=== PATIENT | male | born 1955 | race African-American/Black ===

== ENCOUNTER 2020-04-18 00:41 | Observation (INO) | payer MEDICARE, MEDICAID ==
[2020-04-18] VITALS (7 sets, daily range): BP systolic 100–146; BP diastolic 55–92
[~2020-04-18] VITALS: Ht 185.4 cm; Wt 60.0 kg
[~2020-04-18 00:41] MED LIST: ASPIRIN325 MG PO; ASPIRIN81 MG PO; ATENOLOL50 MG PO; ATRIPLA PO; FLEXERIL5 MG PO; GABAPENTIN300 MG PO; HYDROCHLOROT12.5 MG PO; LISINOPRIL10 MG PO; METHOCARBAM500 MG PO; MORPHINE SUL60 MG OR; MULTIVITAMIN PO; NORVASC5 MG PO; OXYCODONE30 MG PO; XANAX1 MG PO
--- NOTE | 2020-04-18 00:42 | NUR ---
PATIENT TO ROOM 10 VIA EMS STRETCHER. PATIENT IS HOLLERING OUT, ASKING FOR BLANKETS AND PO FLUIDS. PATIENT ABLE TO ANSWER ALL QUESTIONS. TRIAGE COMPLETED AT BEDSIDE.
[2020-04-18] MEDS ORDERED: ATRIPLA PO (00:55)
[2020-04-18] MEDS ORDERED: RESTORIL15 MG PO (00:55)
[2020-04-18] MEDS ORDERED: COZAAR25 MG PO (00:55)
--- NOTE | 2020-04-18 01:08 | NUR ---
WATER GIVE PER REPEATED REQUEST
[2020-04-18 01:14] LABS: HEMATOCRIT 37.9 % (39.0-50.0); HEMOGLOBIN 12.3 g/dl (14.0-18.0); IMMATURE GRANULOCYTES 0.3 % (0.0-5.0); MEAN CORPUSCULAR HGB 33.2 pG CALC (26.0-32.0); MEAN CORPUSCULAR HGB CONC 32.5 g/dL CAL (32.0-36.0); NEUT# 8.23 thou/uL (1.82-7.42); RED BLOOD COUNT 3.7 mill/uL (4.70-6.10); RED CELL DISTRI WIDTH 12.9 % (11.5-15.5)
[2020-04-18 01:29] LABS: ALKALINE PHOSPHATASE 81 u/l (38-126); CARBON DIOXIDE 20 mmol/l (22-30); ETHYL ALCOHOL 0 mg/dl (0-30); MAGNESIUM 3.1 mg/dL (1.6-2.3); POTASSIUM 4.3 mmol/l (3.5-5.1)
[2020-04-18 01:34] LABS: MEAN CELL VOLUME 102.4 fL CALC (80.0-100.0)
[2020-04-18 01:36] LABS: ALBUMIN 4.5 g/dL (3.2-5.0); ANION GAP 15 (6-22 (CALC)); BUN/CREATININE RATIO 37 (12-20 (CALC)); CHLORIDE 119 mmol/l (95-108); CREATININE 2.7 mg/dL (0.7-1.3); GFR 24 ML/MIN (>=60 (CALC)); GFR FOR AFR.AMER. 29 ML/MIN (>=60 (CALC)); SGOT/AST > 750 u/l (19-48); SODIUM 150 mmol/l (137-146); TOTAL PROTEIN 8.6 g/dL (6.3-8.2)
[2020-04-18 01:38] LABS: BUN 99 mg/dL (8-23)
--- NOTE | 2020-04-18 02:00 | NUR ---
GAVE PT URINAL INFORMED HIM THAT WAS ALL WE NEEDED AND THEN THE DOCTOR WILL DECIDE IF HE NEEDS TO BE ADMITTED OR CAN GO HOME.
--- NOTE | 2020-04-18 02:52 | NUR ---
DR BECKMAN IN TO SPEAK WITH PT AND NIECE.
--- NOTE | 2020-04-18 03:38 | NUR ---
PT INCONTINENT OF LARGE AMOUNT OF URINE. CLEANED AND CHANGED PT. MANJU TOOK ALL PT'S CLOTHING AND PILLS HOME. INFORMED HER PT GOING TO ROOM 270. Admission Note Report Given to: MARC PERALES Transported by: Wheelchair X Stretcher Transported with: X Nurse Transporter X Patent IV O2 Van Driver Helper Location: ICU X MS2
--- NOTE | 2020-04-18 03:59 | NUR ---
PT ARRIVED TO THE MED SURG UNIT AND SELF TRANSFERRED TO THE BED FROM STRETCHER WITH 2X ASSISTANCE. PT WAS VERY WEAK AND UNSTEADY GAIT. SKIN APPEARS TO BE INTACT, PT LOCX5, SPEECH SLIGHTLY SLURRED, PT SEDATED IN APPEARANCE, BUT FOLLOWS INSTRUCTIONS, 02SAT ON RA89% PT PLACED ON 2L02 SATS 96%. PT FALLING ASLEEP WE TALK W/HIM. PT ABLE TO SIGN HIS NAME TO ONE PAPER AND THEN FELL ASLEEP AND WOULD NOT SIGN THE "FALL SHEET." V/S STABLE AT THIS TIME. NO S/O DISTRESS, JUST SEDATED IN APPEARANCE. ASSESSMENT COMPLETED, BED ALARM PLACED ON AND CAMERA PLACED FOR PT SAFETY MONITORING. PT VERY UNSTEADY AND FALLING OVER SITTING UP IN THE BED.
[2020-04-18 04:40] LABS: URINE BILIRUBIN - DIPSTICK NEGATIVE (NEGATIVE); URINE BLOOD DIPSTICK LARGE (NEGATIVE); URINE COLOR YELLOW; URINE GLUCOSE - DIPSTICK NEGATIVE (NEGATIVE); URINE KETONE TRACE mg/dL (NEGATIVE); URINE LEUK ESTERASE NEGATIVE (NEGATIVE); URINE NITRITE - DIPSTICK NEGATIVE (Negative); URINE PROTEIN - DIPSTICK 30 mg/dL (NEG-TRACE); URINE UROBILINOGEN - DIPSTICK 0.2 E.U./dL (0.2)
[2020-04-18 04:48] LABS: URINE WBC 0-2 WBC/hpf (0-5)
--- NOTE | 2020-04-18 05:08 | NUR ---
PT SLEEPING AT THIS TIME.
--- NOTE | 2020-04-18 07:29 | NUR ---
RECIEVED REPORT FROM MARC PERALES. PT SLEEPING IN SEMI FOWLERS POSITION. RSPIRATIONS ARE EVEN AND UNLABORED. IV RUNNING WITH EASE AT 250 ORDERED. NO SIGNS OF ANY PAIN OR DISCOMFORTS AT THIS TIME. ALL SAFETY PRECATUIONS IN PLACE WITH CALL LIGHT IN REACH. WILL CONTINUE TO MONITOR
[2020-04-18] MEDS ORDERED: OXYCODONE30 MG PO (07:45)
[2020-04-18 08:46] LABS: CREATININE 1.9 mg/dL (0.7-1.3); MAGNESIUM 2.8 mg/dL (1.6-2.3); POTASSIUM 4.4 mmol/l (3.5-5.1)
--- NOTE | 2020-04-18 08:50 | NUR ---
JULIAN,ANESTHESIA AT BEDSIDE
--- NOTE | 2020-04-18 09:00 | NUR ---
RT AT BEDSIDE OBTAINING EKG.
--- NOTE | 2020-04-18 11:16 | NUR ---
DR. TOBAR AND JEANETTE ANRP AT BEDSIDE DISCUSSING POC.
--- NOTE | 2020-04-18 12:30 | NUR ---
PT RESTING IN SEMI FOWLERS POSITION WATCHING TV. NIECE AT BEDSIDE. RESPIRATIONS ARE EVEN AND UNLABORED. PT DENIES ANY PAIN OR DISCOMFORTS AT THIS TIME. ASKED NIECE IF SHE KNEW ANYONE WHO COULD BRING PTS HOME MED ATRIPLA. NILAWRENCE STATED" HIS OTHER NIECE HAS A TREVINO, I WILL SEE IF SHE CAN GET IT. " ALL SAFTEY PRECAUTIONS IN PLACE WITH CALL LIGHT IN REACH. WILL CONTINUE TO MONITOR.
--- NOTE | 2020-04-18 12:47 | NUR ---
DR MCGRATH AT BEDSIDE DISCUSSING POC
--- NOTE | 2020-04-18 14:29 | NUR ---
Confirmed med list with patient and pharmacist, Osiel, at [facility] in [place], [place]. Patient regularly fills at [facility] pharmacy. Spoke with patient who also confirmed med list and stated his preferred pharmacy is [place], [place].
--- NOTE | 2020-04-18 14:38 | NUR ---
HOME MEDICATION ATRIPLA BROUGHT IN BY FAMILY AND PROVIDED TO PHARMACY FOR VERIFICATION.
[2020-04-18] MEDS ORDERED: MS CONTIN60 MG PO (15:04)
--- NOTE | 2020-04-18 16:19 | NUR ---
PT SLEEPING IN SEMI FOWLERS POSITION UPON ENTERING ROOM. RESPIRATIONS ARE EVEN AND UNLABRORED AT THIS TIME. IV FLUIDS RUNNING AT 75 ML ORDERED. PT DENIES ANY PAIN OR DISCOMFORTS AT THIS TIME. ALL SAFTEY PRECAUTIONS IN PLACE WITH CALL LIGHT IN REACH. WILL CONTINUE TO MONTIOR
--- NOTE | 2020-04-18 19:55 | NUR ---
PT SETTING OFF BED ALARM TRYING TO GET OUT OF BED, PT ASSISTED TO STAND AT BEDSIDE TO USE URINAL. PT UNSTEADY ON FEET AND UNABLE TO STAND UP STRAIGHT. PT REPOSITIONED IN BED. RESPIRATIONS EVEN AND UNLABORED ON RA. LUNGS SOUND DIMINISHED. PEDAL PULSES WEAK. PT DENIES ANY PAIN OR DISCOMFORT AT THIS TIME. BED ALARM ACTIVE FOR PT SAFETY. WILL CONTINUE TO MONITOR.
--- NOTE | 2020-04-18 23:36 | NUR ---
PT SOUNDED ALARM, PT ASSISTED TO BSC. IVSITE LEAKING BLOOD. PT CLEANED OF INCONTINENT URINE AND GOWN CHANGED. BEDDING CHANGED AT THIS TIME. 200CC OF DARK YELLOW URINE EMPTIED AT THIS TIME AND SOME INCONTINENCE NOTED DURING TRANSFERRING FROM BED TO BSC. IV SITE INTACT, PATENT, BUT DRESSING LOOSE. I ASKED PT IF I COULD CHANGE HIS EMS SITE TO [facility] ACCESSED SITE, HE SHOOK HIS HEAD NO AND GRUNTED. I ASKED PT IF I COULD CLEAN THE EXISTING SITE AND CHANGE THE DRESSING, HE STATED "YES." DRESSING CHANGED TO PERIPHERAL SITE TO , SITE PATENT AND FLUSHING. IVF LEFT RUNNING. BED ALARM ON. PT DENIES ANY OTHER NEEDS. CALL LIGHT AT SIDE.
--- NOTE | 2020-04-19 00:01 | NUR ---
PT RESTING IN BED CONDUM CATHETER IN PLACE. CALL OLIVER WITH IN REACH WILL CONTINUE TO MONITOR.
[2020-04-19 03:15] VITALS: BP 124/70
--- NOTE | 2020-04-19 04:10 | NUR ---
PT PULLED CONDUM CATHETER OFF, UNSUCCESSFULLY ATTEMPED TO USE THE URINAL. PT CLEANED UP AND LINENS CHANGED. BED ALARM ACTIVE FOR PT SAFETY. WILL CONTINUE TO MONITOR.
[2020-04-19 05:28] LABS: BUN 48 mg/dL (8-23); CARBON DIOXIDE 23 mmol/l (22-30); CHLORIDE 116 mmol/l (95-108); CREATININE 1.1 mg/dL (0.7-1.3); GFR > 60 ML/MIN (>=60 (CALC)); GFR FOR AFR.AMER. > 60 ML/MIN (>=60 (CALC)); POTASSIUM 4.4 mmol/l (3.5-5.1); SODIUM 141 mmol/l (137-146)
[2020-04-19 05:42] LABS: ALBUMIN 3.2 g/dL (3.2-5.0)
--- NOTE | 2020-04-19 07:28 | NUR ---
RECIEVED REPORT FROM MARC WOODRUFF. PT SLEEPING IN SEMI FOLWERS POSITION UPON ENTERING ROOM. RESPIRATIONS ARE EVEN AND UNLABORED. IV FLUIDS RUNNING AT 75ML ORDERED. TELE IN PLACE. NO SIGNS OF ANY PAIN OR DISCOMFORTS AT THIIS TIME. ALL SAFTEY PRECAUTIONS REMIAN IN PLACE WITH CALL LIGHT IN REACH. WILL CONTINUE TO MONITOR.
[2020-04-19 08:31] LABS: HEMATOCRIT 36.5 % (39.0-50.0); HEMOGLOBIN 11.6 g/dl (14.0-18.0); MEAN CELL VOLUME 102.5 fL CALC (80.0-100.0); MEAN CORPUSCULAR HGB 32.6 pG CALC (26.0-32.0); MEAN CORPUSCULAR HGB CONC 31.8 g/dL CAL (32.0-36.0); RED BLOOD COUNT 3.56 mill/uL (4.70-6.10); RED CELL DISTRI WIDTH 13.2 % (11.5-15.5)
[2020-04-19 08:52] LABS: ALBUMIN 3.1 g/dL (3.2-5.0); ALKALINE PHOSPHATASE 65 u/l (38-126); ANION GAP 5 (6-22 (CALC)); BILIRUBIN, TOTAL 0.7 mg/dL (0.0-1.4); BUN 37 mg/dL (8-23); BUN/CREATININE RATIO 39 (12-20 (CALC)); CARBON DIOXIDE 25 mmol/l (22-30); CHLORIDE 116 mmol/l (95-108); CREATININE 0.9 mg/dL (0.7-1.3); GFR > 60 ML/MIN (>=60 (CALC)); GFR FOR AFR.AMER. > 60 ML/MIN (>=60 (CALC)); POTASSIUM 3.9 mmol/l (3.5-5.1); SGOT/AST 457 u/l (19-48); SODIUM 141 mmol/l (137-146)
[2020-04-19 08:57] LABS: TOTAL PROTEIN 6.5 g/dL (6.3-8.2)
[2020-04-19 10:05] VITALS: BP 137/65
--- NOTE | 2020-04-19 10:05 | NUR ---
ASSESSMENT AND VITALS COMPLETED AT THIS TIME. PT IS A/O X2 BUT VERY DOWSY. BP 137/65, HR 47, O2 100% ON 2L NC. RESPIRATIONS ARE EVEN AND UNLABORED, LUNG SOUNDS ARE CLEAR. HEART RHYTHM IS NORMAL, TELE IN PLACE.BOWEL SOUNDS ARE ACTIVE IN ALL QUADRANTS WITH NO TENDERNESS. RADIAL AND PEDAL PULSES ARE STRONG WITH NORMAL CAPILLARY REFILL. SKIN IS WARM AND DRY WITH NO BREAK DOWN OR EDEMA. IV FLUIDS RUNNING @ 75 ML ORDERED. PT DENIES ANY PAIN OR DISCOMFORTS AT THIS TIME.ALL SAFTEY PRECAUTIONS IN PLACE WITH CALL LIGHT IN REACH WITH BED ALARM ACTIVATED. WILL CONTINUE TO MONITOR.
--- NOTE | 2020-04-19 10:59 | NUR ---
AND JEANETTE,DOUGLAS AT BEDSIDE DISCUSSING POC WITH PT.
--- NOTE | 2020-04-19 12:00 | NUR ---
PT RESTING IN RECYLINER WITH EYES CLOSED. RESPIRTAIONS ARE EVEN AND UNLABORED. PT STILL APPEARS VERY DROWSY BUT DOES AWAKEN WHEN CALLED.TELE IN PLACE . IV FLUIDS RUNNING AT 75 ML ORDERED, SITE APPEARS HEALTHY AND PATENT. PT DENIES OF ANY PAIN OR DISCOMFORTS AT THIS TIME. ALL SAFTEY PRECAUTIONS IN PLACE WITH CALL LIGHT IN REACH. WILL CONINUE TO MONITOR.
[2020-04-19 12:08] VITALS: BP 133/71
--- NOTE | 2020-04-19 14:16 | NUR ---
PT TRANSPORTED TO [facility] IN STABLE CONDITION VIA WHEELCHAIR ACCOMPANIED BY DANILO CONNELL.
[2020-04-19 14:20] VITALS: BP 141/85
--- NOTE | 2020-04-19 15:23 | NUR ---
PT ARRIVED BACK TO MED SURG ROOM 270 VIA WHEELCHAIR IN STABLE CONDITION. PT WANTED TO SIT BACK UP IN RECYLINER. RESPIRATIONS ARE EVEN AND UNLABORED WITH NO SIGNS OF DISTRESS. PT IS NOT DROWSY IN THE MORNING. PT DENIES ANY PAIN OR DISCOMFORTS AT THIS TIME. ALL SAFETY PRECAUTIONS IN PLACE WITH CALL LIGHT IN REACH. WILL CONTINUE TO MONITOR.
[2020-04-19 19:16] VITALS: BP 141/68
--- NOTE | 2020-04-19 20:00 | NUR ---
PT RESTING IN BED, ALERT TO SELF. RESPIRATIONS EVEN AND UNLABORED ON O2 @ 2L VIA NC. LUNG SOUND DIMINISHED. PEDAL PULSES ARE SRONG PT DENIES ANY PAIN OR DISCOMFORT AT THIS TIME. BED ALARM ACTIVE FOR PT SAFETY. WILL CONTINUE TO MONITOR.
[2020-04-19 23:40] VITALS: BP 133/66
--- NOTE | 2020-04-20 | NUR ---
PT RESTING IN BED, FREE FROM DISTRESS AT THIS TIME. BED ALARM ACTIVE FOR PT SAFETY. WILL CONTINUE TO MONITOR.
[2020-04-20 04:00] VITALS: BP 191/82
--- NOTE | 2020-04-20 04:00 | NUR ---
PT RESTING IN BED, FREE FROM DISTRESS AT THIS TIME. BED ALARM ACTIVE FOR PT SAFETY. WILL CONTINUE TO MONITOR.
[2020-04-20 05:47] VITALS: BP 193/83
[2020-04-20 07:04] LABS: ALBUMIN 3.2 g/dL (3.2-5.0); ALKALINE PHOSPHATASE 62 u/l (38-126); ANION GAP 8 (6-22 (CALC)); BILIRUBIN, TOTAL 0.7 mg/dL (0.0-1.4); BUN 21 mg/dL (8-23); BUN/CREATININE RATIO 31 (12-20 (CALC)); CARBON DIOXIDE 24 mmol/l (22-30); CHLORIDE 110 mmol/l (95-108); CREATININE 0.7 mg/dL (0.7-1.3); GFR > 60 ML/MIN (>=60 (CALC)); GFR FOR AFR.AMER. > 60 ML/MIN (>=60 (CALC)); POTASSIUM 4.6 mmol/l (3.5-5.1); SGOT/AST 366 u/l (19-48); SODIUM 138 mmol/l (137-146); TOTAL PROTEIN 7.1 g/dL (6.3-8.2)
--- NOTE | 2020-04-20 07:30 | NUR ---
RECIEVED REPORT FROM RANJAN TRAN. PT SLEEPING IN SMEI FOWLERS POSITION UPON ENTERING ROOM. RESPIRATIONS ARE EVEN AND UNLABORED. NO SIGNS OF ANY DISTRESS OR DISCOMFORTS. IV FLUIDS RUNNING @75 ORDERED, SITE APPERS HEALTHY AND PATENT. ALL SAFTEY PRECAUTIONS IN PLACE WITH CALL LIGHT IN REACH AND BED ALARM ACTIVATED. WILL CONTINUE TO MONITOR
[2020-04-20 08:12] VITALS: BP 171/80
--- NOTE | 2020-04-20 08:12 | NUR ---
PT RESTING IN SEMI FOWLERS POSITION UPON ENTERING ROOM. INTRODUCED SELF TO PT AND DISCUSSED POC. ASSESSMENT AND VITALS COMPLETED AT THIS TIME. BP 171/8, HR 48. COZAAR ADMINISTERED WITH MORNING MEDS. O2 96% ON 2L NC, RESPIRATIONS ARE EVEN AND UNLABORED. LUNG SOUNDS ARE CLEAR, TELE IN PLACE. RADIAL AND PEDAL PULSES ARE STRONG WITH NORMAL CAPILLARY REFILL. NO EDEMA OR SKIN BREAK DOWN PRESENT. IV FLUIDS RUNNING @75 ML ORDERED, SITE APPEARS HEALTHY AND PATENT. PT COMPLAINING OF 5/10 ABDOMINAL PAIN . NOTIFIED JEANETTE, ORDERED TAHT WE ARE NOT ABLE TO GIVE ANYTHING ELSE OF NOW DUE TO PT ALREADY HAVING OXYCODONE EARLIER THIS MORNING. PT DENIES ANY OTHER PAINS OR DISCOMFORTS AT THIS TIME. ALL SAFETY PRECAUTIONS IN PLACE WITH CALL LIGHT IN REACH AND BED ALARM ACTIVATED. WILL CONTINUE TO MONITOR
[2020-04-20 11:12] VITALS: BP 134/79
--- NOTE | 2020-04-20 11:30 | NUR ---
DR. TOBAR AND JEANETTE AT BEDSIDE DISCUSSING POC.
--- NOTE | 2020-04-20 12:10 | NUR ---
PT SITTING UP IN RECYLINER WITH EYES CLOSED. RESPIRATIONS ARE EVEN AND UNLABORED WITH NO SIGNS OF ANY DISTRESS. PT APPEARS EVERY DOWSY BUT DOES AWAKE WHEN NAME CALLED. PT DENIES OF ANY PAIN OR DISCOMFORTS AT THIS TIME. ALL SAFTEY PRECAUTIONS IN PLACE WITH CALL LIGHT IN REACH. WILL CONTINUE TO MONITOR.
--- NOTE | 2020-04-20 14:17 | NUR ---
IV REMOVED WITH CATHATER STILL INTACT. PT TOLERATED WELL. AWAITING FOR NIECES ARRIVAL TO EXPAIN DISCHARGE INSTRUCTIONS. ALL SAFTEY PRECAUTIONS IN PLACE WITH CALL LIGHT IN REACH. WILL CONTINUE TO MONITOR.
--- NOTE | 2020-04-20 14:38 | NUR ---
PT AND NIECE EDUCATED ON DISCHARGE INSTRUCTIONS AND HOLD OF ATRIPLA. NIECE AND PT VERBALIZED UNDTERSTANDING. ALL SAFTEY PRECAUTIONS IN PLACE WIITH CALL LIGHT IN REACH. AWAITING TRANSPORTATION AT THIS TIME. WILL CONTINUE TO MONITOR
--- NOTE | 2020-04-20 14:40 | NUR ---
Discharge instructions given. Patient verbalizes understanding of same. Discharged in stable condition via Wheelchair to Home with family. All belongings sent with pt. PT LEFT FLOOR IN STABLE CONDITION VIA WHEELCHAIR ACCOMPAINED BY RAMEZ YANES;DANILO IBANEZ AND NIECE. ALL BELONGINGS AND HOME MED ATRIPLA LEFT WITH PT IN NIECES HANDS
== END 2020-04-20 14:40 ==
LOC: ED 00:41 → ED-I 02:40 → ED 03:02 → ED-I 03:03 → MS2 03:03
PROVIDERS: Family Medicine; Internal Medicine; Internal Medicine Nephrology; Nurse Practitioner Family; ADMIT Internal Medicine; ATTEND Internal Medicine
DX: T40.2X1A Poisoning by other opioids, accidental (unintentional), initial encounter (principal); N17.9 Acute kidney failure, unspecified; E86.0 Dehydration; E87.0 Hyperosmolality and hypernatremia; I95.9 Hypotension, unspecified; R74.0 Nonspecific elevation of levels of transaminase and lactic acid dehydrogenase [LDH]; E46 Unspecified protein-calorie malnutrition; I10 Essential (primary) hypertension; G62.9 Polyneuropathy, unspecified; I73.9 Peripheral vascular disease, unspecified; G89.4 Chronic pain syndrome; E87.2 Acidosis; M54.12 Radiculopathy, cervical region; D64.9 Anemia, unspecified; F14.10 Cocaine abuse, uncomplicated; B18.2 Chronic viral hepatitis C; F17.200 Nicotine dependence, unspecified, uncomplicated; Y92.009 Unspecified place in unspecified non-institutional (private) residence as the place of occurrence of the external cause; Z68.1 Body mass index [BMI] 19.9 or less, adult; Z21 Asymptomatic human immunodeficiency virus [HIV] infection status; Z79.891 Long term (current) use of opiate analgesic; Z20.828 Contact with and (suspected) exposure to other viral communicable diseases
CPT/HCPCS: G0378

== ENCOUNTER 2021-12-22 11:44 | Inpatient (IN) | payer MEDICARE, MEDICAID ==
[~2021-12-22] VITALS: Ht 185.4 cm; Wt 42.0 kg
[~2021-12-22 11:44] MED LIST changes: +COZAAR25 MG PO; +MS CONTIN60 MG PO; +RESTORIL15 MG PO
--- NOTE | 2021-12-22 12:06 | NUR ---
PT ESCORTED TO ROOM 11 VIA EMS STRETCHER
--- NOTE | 2021-12-22 12:18 | NUR ---
PT ARRIVAL VIA EMS, FOUND DOWN, POOR HISTORIAN, HX OF ETOH, 1MG NARCAN GIVEN BY EMS
[2021-12-22 12:32] LABS: IMMATURE GRANULOCYTES 0.3 % (0.0-5.0); MEAN CELL VOLUME 102.4 fL CALC (80.0-100.0); MEAN CORPUSCULAR HGB 32.9 pG CALC (26.0-32.0); MEAN CORPUSCULAR HGB CONC 32.1 g/dL CAL (32.0-36.0); NEUT# 7.27 thou/uL (1.82-7.42); RED BLOOD COUNT 4.1 mill/uL (4.70-6.10); RED CELL DISTRI WIDTH 12.8 % (11.5-15.5)
[2021-12-22 12:36] LABS: HEMOGLOBIN 13.5 g/dl (14.0-18.0)
[2021-12-22 13:09] LABS: ALBUMIN 4.5 g/dL (3.2-5.0); BILIRUBIN, TOTAL 0.8 mg/dL (0.0-1.4); POTASSIUM 5.6 mmol/l (3.5-5.1)
[2021-12-22 13:10] LABS: CREATININE 7.5 mg/dL (0.7-1.3)
[2021-12-22 13:14] LABS: URINE BLOOD DIPSTICK LARGE (NEGATIVE); URINE COLOR YELLOW; URINE GLUCOSE - DIPSTICK NEGATIVE (NEGATIVE); URINE KETONE NEGATIVE (NEGATIVE); URINE LEUK ESTERASE NEGATIVE (NEGATIVE); URINE PH 5.5 (4.5-8.0); URINE PROTEIN - DIPSTICK 30 mg/dL (NEG-TRACE); URINE SPECIFIC GRAVITY >=1.030; URINE UROBILINOGEN - DIPSTICK 0.2 E.U./dL (0.2)
[2021-12-22 13:33] LABS: URINE BILIRUBIN - DIPSTICK SMALL (NEGATIVE); URINE NITRITE - DIPSTICK POSITIVE (Negative)
[2021-12-22 13:34] LABS: URINE BACTERIA FEW hpf; URINE EPITHELIAL CELLS FEW EPI/hpf (0-FEW); URINE MUCUS MODERATE hpf (NONE-FEW)
--- NOTE | 2021-12-22 13:45 | NUR ---
RT CONSULTED TO ASSESS PATIENT DUE TO FEELING OF SOB ON 15L VENTURI MASK AND NO WAVEFORM IN SPO2.
--- NOTE | 2021-12-22 13:59 | NUR ---
UNABLE TO PERFORM NIH DUE TO PATIENT STATE.
--- NOTE | 2021-12-22 14:11 | NUR ---
Reassessment of patient completed. No distress noted.
[2021-12-22] MEDS ORDERED: XALATAN0.005 % OU (14:44)
[2021-12-22] MEDS ORDERED: KURIC2 % EX (14:45)
--- NOTE | 2021-12-22 16:14 | NUR ---
Rt CURRENTLY BEDSIDE WITH PATIENT
--- NOTE | 2021-12-22 17:53 | NUR ---
REPORT CALLED TO MARC NEWMAN ICU
--- NOTE | 2021-12-22 18:30 | NUR ---
male pt received to ICU bed 2 via stretcher accompanied by MARC Rubio; pt transferred to bed; monitoring attachments connected; call light within reach
[2021-12-22 18:45] VITALS: BP 127/63
[2021-12-22 18:55] LABS: CREATININE 5.6 mg/dL (0.7-1.3); POTASSIUM 5.3 mmol/l (3.5-5.1)
[2021-12-22 19:00] VITALS: BP 137/63
--- NOTE | 2021-12-22 19:00 | NUR ---
RESTING IN BED WITH EYES CLOSED. RESP SHALLOW, NON-LABORED. VSS. SR ON MONITOR.
[2021-12-22 19:15] VITALS: BP 122/58
[2021-12-22 19:30] VITALS: BP 133/58
[2021-12-22 19:45] VITALS: BP 140/63
--- NOTE | 2021-12-22 20:00 | NUR ---
PATIENT OPENS EYES. ABLE TO STATE NAME AND BIRTHDATE. SPEECH SOMEWHAT GARBLED. FOLLOWS COMMANDS. GENERALIZED WEAKNESS. VSS. IV IN LAC WITH NS INFUSING AT 150 ML/HR. SHIFT ASSESSMENT COMPLETED. EXPLAINED PLAN OF CARE. CALL OLIVER IN REACH.
--- NOTE | 2021-12-22 20:15 | NUR ---
DR TOBAR PHNED IN FOR UPDATE ON PATIENT.
[2021-12-22 22:00] VITALS: BP 155/69
--- NOTE | 2021-12-22 22:04 | NUR ---
RT HERE TO DRAW REPEAT ABGS. PATIENT RESTLESS AT TIMES ALTHOUGH COOPERATIVE WITH CARE. VSS. IV INFUSING WITHOUT INCIDENT.
[2021-12-22 23:33] LABS: CREATININE 4.5 mg/dL (0.7-1.3)
--- NOTE | 2021-12-22 23:45 | NUR ---
DR TOBAR MADE AWARE OF RECENT CHEM 7 RESULTS. NEW ORDERS RECEIVED.
[2021-12-23] VITALS (26 sets, daily range): BP systolic 123–247; BP diastolic 59–134
--- NOTE | 2021-12-23 00:52 | NUR ---
PATIENT MEDICATED WITH ROXICODONE FOR C/O GENERALIZED PAIN AND RESOTRIL FOR SLEEP. PATIENT HAD REFUSED MEDS EARLIER TONIGHT.
--- NOTE | 2021-12-23 02:00 | NUR ---
RESTING WITH EYES CLOSED. RESP NON-LABORED. VSS.
--- NOTE | 2021-12-23 03:30 | NUR ---
COMPLETE BED BATH GIVEN, LINENS CHANGED. PATIENT COOPERATIVE WITH CARE.
--- NOTE | 2021-12-23 04:10 | NUR ---
SAMPLER RADIOACTIVE WASTE HERE FOR AM BLOOD DRAW. VSS. SR ON MONITOR. /2 NS INFUSING AT 150 ML/HR, IV SITE BENIGN.
[2021-12-23 05:54] LABS: HEMATOCRIT 37.3 % (39.0-50.0); MEAN CELL VOLUME 102.5 fL CALC (80.0-100.0); MEAN CORPUSCULAR HGB CONC 32.2 g/dL CAL (32.0-36.0); RED BLOOD COUNT 3.64 mill/uL (4.70-6.10); RED CELL DISTRI WIDTH 12.9 % (11.5-15.5)
--- NOTE | 2021-12-23 06:18 | NUR ---
RESTING WITH EYES CLOSED. VSS. RESP NON-LABORED. ST ON MONITOR.
[2021-12-23 06:26] LABS: ALBUMIN 3.6 g/dL (3.2-5.0); BILIRUBIN, TOTAL 0.6 mg/dL (0.0-1.4); POTASSIUM 5.1 mmol/l (3.5-5.1); TOTAL PROTEIN 7.5 g/dL (6.3-8.2)
[2021-12-23 06:32] LABS: CREATININE 3.4 mg/dL (0.7-1.3)
--- NOTE | 2021-12-23 07:15 | NUR ---
pt restless in bed with eyes open; does respond/turn head when name is called; assessment completed at this time; pt alert to name only; pt non verbal with this resume writer at this time; no s/s/grimaces of pain noted; no n/v noted; resp even and unlabored; lungs clear/ diminished bases; skin color wnl; o2 per nc at 5L; hr reg; wk pedal pulses; no edema noted; st on monitor; abd soft with bs hypoactive; no bm noted per resume writer; donahue to gravity draining well; #22 patent to rac with ivf infusing without complication; no redness or edema noted at site; plan of care explained; pt appears very ill; call light within reach; bed alarm activated for pt safety; pt unable to tolerate po safely at this time due to mental status; will continue to monitor closely
--- NOTE | 2021-12-23 08:00 | NUR ---
moaning occasionally; open eyes wide hen name is called; when attempting to speak, speech noted garbled; pt too drowsy for breakfast or meds; repositioned; moans loudly with repositioning; call light within reach; will continue to monitor
--- NOTE | 2021-12-23 08:47 | NUR ---
Dr Munoz present at bedside to assess pt and discuss plan of care; MD informed of elevated BP at this time; pt responds to name being called; moans loudly/grunts when repositioned; will continue to monitor
--- NOTE | 2021-12-23 09:15 | NUR ---
pt has removed monitoring attachments; pushes this bond writer away when attempting to reapply; medicated as per orders; iv intact and patent; o2 per nc; will continue to monitor
--- NOTE | 2021-12-23 10:00 | NUR ---
pt moaning very loudly; appears in pain; st 120s on monitor; Dr Munoz present on unit and updated; pt awake enough to receive oral pain meds; repositined to high fowlers; med provided with applesauce and tolerated well; will continue to monitor
--- NOTE | 2021-12-23 10:05 | NUR ---
sister Margo Parisi ([phone]) called this blurb writer; passcode verified; updated provided;
--- NOTE | 2021-12-23 10:13 | NUR ---
visitor present at bedside
--- NOTE | 2021-12-23 10:49 | NUR ---
pt has removed monitoring attachment; reapplied; freq moaning/growling noted; repositioned for comfort; will continue to monitor
--- NOTE | 2021-12-23 11:17 | NUR ---
Dr Falcon informed of consultation
--- NOTE | 2021-12-23 11:32 | NUR ---
pt freq removing personnel monitor attachment; reapplied and pt immed removes; pulse ox reapplied; st on monitor; bp elevated; repositioned; will continue to monitor
--- NOTE | 2021-12-23 12:22 | NUR ---
pt moaning and grunting very loudly; MD notified of elevated BP and HR; st on monitor; iv intact and patent; reinforced d/t pt freq pulling at lines/ monitoring equipment; orders received and on chart; will continue to monitor closely
--- NOTE | 2021-12-23 12:55 | NUR ---
BP 140s/80s; cardene gtt titrated to 2.5mg/hr
--- NOTE | 2021-12-23 14:01 | NUR ---
pt resting in bed with eyes closed; no apparent distress noted; iv intact and patent; cardene gtt at 2.5mg/hr; st on monitor; ra; o2 sat 100%; call light within reach; will continue to monitor
--- NOTE | 2021-12-23 15:43 | NUR ---
Dr Munoz called this securities underwriter; update provided including bp/hr; informed dilaudid 2mg more effective; orders received and on the chart
--- NOTE | 2021-12-23 15:55 | NUR ---
awake in bed; moaning occasionally; repositioned for comfort; pt favors left side; st on monitor; ra; iv intact and patent; cardene gtt cont at 2.5mg/hr; call light within reach; sister at bedside; will continue to monitor
--- NOTE | 2021-12-23 18:02 | NUR ---
pt awake in bed; moaning very loudly; grunting; pt cont to be nonverbal; resp even and unlabored; iv intact and patent; cardene gtt cont; st on monitor; repositioned to right side; call light within reach;
--- NOTE | 2021-12-23 19:00 | NUR ---
REPORT RECIEVED FROM OUGOING SHIFT. PATIENT RESTING QUIELY IN BED RIGHT SIDE POSITION WITH EYES CLOSED AROUSABLE SLOW TO RESPOND TO QUESTIONS ORIENTED TO SELF AND PLACE WEAKLY FOLLOW VERBAL COMMANDS. DENIES PAIN AT THIS TIME.
--- NOTE | 2021-12-23 20:18 | NUR ---
BP MONITORED 106/[address] TOWNSEND UPDATED ON CONDITION NEW ORDER RECIEVED.
--- NOTE | 2021-12-23 21:38 | NUR ---
PATIENT QUITELY RESTING IN BE DWITH EYES CLOSED. AROUSABLE OBTUNDED RESPONSE RETURNS TO SLEEPING STATE MORPINE AND RESTORIL NOT GIVEN DUE PATIENT BEING VERY DROWSY AND SLUGGISH TO RESPOND WILL CONTIUE TO MONITOR
--- NOTE | 2021-12-23 21:53 | NUR ---
CALLED UPDATE ON CONDITION RESTORIL AND MORPHINE ON HOLD
--- NOTE | 2021-12-23 22:57 | NUR ---
occassional non-productive cough noted lethargic follow simple commands. nonverbal moans at times
--- NOTE | 2021-12-23 23:13 | NUR ---
patient very restless moving around in bed moaning loudly eyes are open verbal communication limited oral cavity very dry breathe through mouth.oral membranes moistened with oral swab. remoistioned in bed for comfort to alleviate pain unsuccessful medicated with dilaudid 2 mg slow iv push to relieve pain.
--- NOTE | 2021-12-23 23:29 | NUR ---
resting quietlymin bed with eyes closed hr 88 bpm bp 150/79 posture relaxed pain relief achieved
[2021-12-24] VITALS (17 sets, daily range): BP systolic 100–182; BP diastolic 62–112
--- NOTE | 2021-12-24 00:20 | NUR ---
RESTING QUIETLY IN BED WITH EYES CLOSED NO ACUTE DISTRESS NOTED. RESPIRATIONS EVEN AND UNLABORED.
--- NOTE | 2021-12-24 00:32 | NUR ---
RETURNED BACK TO BED. NO ACUTE DISTRESS NOTED. O2 SAT 100% ON 2LPM NC
--- NOTE | 2021-12-24 01:04 | NUR ---
RESTING QUIETLY WITH EYES CLOSED NO ACUTE DISTRESS NOTED
--- NOTE | 2021-12-24 02:15 | NUR ---
PATIENT AWAKE ALERT SPEECH GARBLED ABLE TO MAKE EYE CONTACT AND FOCUS ON VOICE COMMUNICATION ABLE TO ASSIST WITH REPOSITIONING IN BED. SMALL AMOUNT OF PO FLUIDS AND APPLESAUCE TOLERATED WELL . GRIMACES AND MOANS WHEN REPOSITIONED. MEDICATED FOR COMFORT. BP 174/94 APRESOLINE 10MG GIEN SLOW IV PUSH. CARPET REPAIRER SHOWS SINUS TACHYCARDIA WITH PATIENT RESTLESS ACTIVITY IN BED.
--- NOTE | 2021-12-24 05:00 | NUR ---
PATIENT RESTLESS AWAKE RESISTING REPOSITIONING MOANS LOUDLY POSITION ADJUSTED OFF SIDERAIL. SPEECH GARBLED MEDICATED FOR PAIN
[2021-12-24 05:27] LABS: HEMATOCRIT 36.4 % (39.0-50.0); HEMOGLOBIN 12.1 g/dl (14.0-18.0); MEAN CELL VOLUME 99.7 fL CALC (80.0-100.0); MEAN CORPUSCULAR HGB 33.2 pG CALC (26.0-32.0); MEAN CORPUSCULAR HGB CONC 33.2 g/dL CAL (32.0-36.0); RED BLOOD COUNT 3.65 mill/uL (4.70-6.10); RED CELL DISTRI WIDTH 13.1 % (11.5-15.5)
--- NOTE | 2021-12-24 05:33 | NUR ---
RESTING QUIETLY IN BED EASILY AROUSABLE NO C/O PAIN OR DISCOMFORT VOICED
[2021-12-24 05:39] LABS: ALBUMIN 3.5 g/dL (3.2-5.0); ALKALINE PHOSPHATASE 95 u/l (38-126); CARBON DIOXIDE 18 mmol/l (22-30); CHLORIDE 123 mmol/l (95-108); SGOT/AST 410 u/l (19-48); SODIUM 150 mmol/l (137-146); TOTAL PROTEIN 7.7 g/dL (6.3-8.2)
[2021-12-24 05:42] LABS: ANION GAP 13 (6-22 (CALC)); BILIRUBIN, TOTAL 1.2 mg/dL (0.0-1.4); BUN 54 mg/dL (8-23); BUN/CREATININE RATIO 39 (12-20 (CALC)); CREATININE 1.4 mg/dL (0.7-1.3); GFR 51 ML/MIN (>=60 (CALC)); GFR FOR AFR.AMER. > 60 ML/MIN (>=60 (CALC))
[2021-12-24 06:07] LABS: CPK 7233 u/l (52-200)
--- NOTE | 2021-12-24 07:20 | NUR ---
pt noted asleep sitting straight up in bed; no apparent distress noted; arousable to speech and quickly drifts back to sleep; assessment completed at this time; no s/sx of pain noted; no n/v noted; resp even and unlabored; lungs clear; skin color wnl; ra; hr irreg; wk pedal pulses; no edema noted; sr/pac on monitor; abd soft with bs present; no bm noted per creative writer; donahue to gravity; #22 to rac patent with ivf infusing without complication; no redness or edema noted at site; attempt to reposition and pt pushes at this creative writer; bed alarm set for pt safety; call light within reach; will continue to monitor
--- NOTE | 2021-12-24 08:15 | NUR ---
pt resting with eyes closed while sitting straight up with back against side rail; no apparent distress noted; resp shallow; iv intact and patent; st on monitor; call light within reach; will continue to monitor
--- NOTE | 2021-12-24 09:16 | NUR ---
Dr Munoz present at bedside to assess pt and discuss plan of care
--- NOTE | 2021-12-24 09:40 | NUR ---
SPOKE WITH KRISHAN, PT IS NOT ON CARDENE DRIP OF NOW, BUT WILL LET US KNOW BEFORE WE LEAVE IF THEY NEED US TO MAKE ONE.
--- NOTE | 2021-12-24 09:52 | NUR ---
call received from [place]; passcode verified; update provided
--- NOTE | 2021-12-24 10:20 | NUR ---
pt resting in bed with eyes closed while sitting straight up in bed; back supported againt bed rail; st on monitor; iv intact and patent; no redness or edema noted at site; donahue to gravity; call light within reach; will continue to monitor
--- NOTE | 2021-12-24 11:00 | NUR ---
pt awake in bed; very restless and moaning/grunting loudly; pt able to look at group underwriter when name is called; pt remain non verbal with staff; complete bed bath and linen change provided; catheter care and replacement of catheter strap placed; repositioned to right side; oral mucosa very dry and cracked; oral care with toothette; will continue to monitor
--- NOTE | 2021-12-24 12:09 | NUR ---
pt resting in bed on right side; no apparent distress noted; visitor departed; iv intact and patent; sr on monitor; donahue to gravity; call light within reach; will continue to monitor
--- NOTE | 2021-12-24 14:12 | NUR ---
resting in bed with eyes closed; iv intact and patent; st on the monitor; donahue to gravity; will continue to monitor
--- NOTE | 2021-12-24 16:25 | NUR ---
sister Margo present at bedside; pt very restless/agitated; moaning loudly; repositioned for comfort; medicated with ativan as per orders; typewriter assembler request for visitor to reduce stimulation due to increased agitation; st 120s on monitor; donahue to gravity; will continue to monitor closely
--- NOTE | 2021-12-24 18:00 | NUR ---
resting in bed with eyes closed; no apparent distress noted; resp even and unlabored; iv intact and patent; no redness or edema noted at site; sr on monitor; bed alarm set for pt safety; call light within reach;
--- NOTE | 2021-12-24 19:20 | NUR ---
RESTING IN BED ON ROUNDS. OPENES EYS TO NAME. FOLLOWS SOME DIRECTIONS. CALM AND COOPERATVIE. VSS. RA O2 SAT 97% BREATH SOUNDS CLEAR, DIMINISHED IN BASES. FLOREZ DRAINS ALISIA URINE. IV IN RAC, SITE BNEIGN, D5 INFUSING AT 150 ML/HR. PROCESS CONTROL BOARD OPERATOR SHOWS ST, HR 120'S. EXPLAINED PLAN OF CARE. CALL OLIVER IN REACH.
--- NOTE | 2021-12-24 20:15 | NUR ---
BP 182/112, RECHECK 170/102. APRESOLINE 10 MG IVP GIVEN FOR ELEVATED BP. DILAUDID 2 MG IVP GIVEN FOR C/O PAIN.
--- NOTE | 2021-12-24 21:00 | NUR ---
BP RESPONDED WELL TO APRESOLINE, 143/79 AT THIS TIME.
--- NOTE | 2021-12-24 22:00 | NUR ---
RESTING WITH EYES CLOSED. RESP SHALLOW, NON-LABORED. O2 SAT 97% MONITOR ST.
[2021-12-25] VITALS (20 sets, daily range): BP systolic 123–196; BP diastolic 76–108
--- NOTE | 2021-12-25 00:15 | NUR ---
VSS. RESTING WITH EYES CLOSED. ST ON MONITOR, HR 110'S-120'S.
--- NOTE | 2021-12-25 00:45 | NUR ---
MEDICATED WITH DILAUDID ORDERED FOR PAIN. ASSISTED PATIENT TO TURN AND REPOSITION.
--- NOTE | 2021-12-25 04:15 | NUR ---
ASSISTED PATIENT TO TURN AND REPOSITION. ATIVAN IV GIVEN FOR RESTLESSNESS AND TYLENOL RECTAL SUPP GIVEN FOR TEMP 100.3.
[2021-12-25 05:13] LABS: HEMATOCRIT 37.3 % (39.0-50.0); MEAN CELL VOLUME 101.9 fL CALC (80.0-100.0); MEAN CORPUSCULAR HGB 32.8 pG CALC (26.0-32.0); MEAN CORPUSCULAR HGB CONC 32.2 g/dL CAL (32.0-36.0); RED BLOOD COUNT 3.66 mill/uL (4.70-6.10); RED CELL DISTRI WIDTH 13.3 % (11.5-15.5)
[2021-12-25 05:33] LABS: BUN 29 mg/dL (8-23); CARBON DIOXIDE 20 mmol/l (22-30); CHLORIDE 117 mmol/l (95-108); GFR > 60 ML/MIN (>=60 (CALC)); GFR FOR AFR.AMER. > 60 ML/MIN (>=60 (CALC)); POTASSIUM 3.6 mmol/l (3.5-5.1); SODIUM 143 mmol/l (137-146)
[2021-12-25 05:49] LABS: CPK 8087 u/l (52-200)
--- NOTE | 2021-12-25 05:56 | NUR ---
TEMP DOWN TO 98.5. BP 130/85
--- NOTE | 2021-12-25 07:56 | NUR ---
REPORT RECEIVED FROM MARC MARSH. PT VERY RESTLESS AND AGITATED. MOANING AND MOVING ARMS. PT IS AWAKE, BUT NON VERBAL. DOES MOAN. BP IS ELEVATED AT 167/87. PT MOANS TO REPOSITIONING OR TOUCH WITH ASSESSMENT. GIVEN PRN DILAUDID. PT UNABLE TO FOLLOW COMMANDS. DOES NOT ATTEMPT TO SUCK ON MOUTH SPUNGE WHEN MOUTH SWABBED WITH COLD WATER. BED ALARM APPLIED FOR ADDITIONAL SAFETY. WILL HOLD MEAL TRAY UNTIL FURTHER SEEN BY MD. CALL LIGHT WITHIN REACH. WILL MONITOR CLOSELY.
--- NOTE | 2021-12-25 09:55 | NUR ---
S: PELON JIN is a 66 M who presents with sepsis He has a history of HTN, HIV, neuropathy. All medications in patient's chart were reviewed. O: VS: BP 123/76 mmHg, P 106 beats/min, RR 18 breaths/min ,T 98.0 F W 42 kg, HT 185.42 cm, Scr=1 mg/dL, CrCl= 42.6 ml/min A: Final urine culture shows no growth P: Patient is on Zosyn 3.375 grams @2000, 0800, 1400, 2000 and fluconazole 200mg Q24H. Vancomycin ordered for pharmacy to dose. Start Vancomycin 750 mg IV Q24H. Vancomycin trough is drawn before the 4th dose on 12/28 @1030. Vancomycin goal trough is between 15-20 mcg/ml. Pharmacy will follow and or advise on antibiotics use as needed.
--- NOTE | 2021-12-25 12:03 | NUR ---
PT BACK FROM MRI. AGITATED AND MOANING BP IS ELEVATED. WILL GIVE PRN PAIN MEDICATION, EVALUATE BP AND GIVE PRN BP MEDICATION IF STILL NEEDED. GIVEN ATIVAN PRIOR TO MRI R/T RESTLESSNESS. TOLERATED PROCEDURE. SAFELY PLACED BACK IN BED, BED ALARM TURN ON FOR ADDITINAL SAFETY.
[2021-12-25 13:02] LABS: TSH, 3RD GENERATION 0.16 uIU/mL (0.47 - 4.68)
[2021-12-25 14:19] LABS: URINE BILIRUBIN - DIPSTICK NEGATIVE (NEGATIVE); URINE BLOOD DIPSTICK MODERATE (NEGATIVE); URINE COLOR YELLOW; URINE GLUCOSE - DIPSTICK NEGATIVE (NEGATIVE); URINE KETONE NEGATIVE (NEGATIVE); URINE LEUK ESTERASE NEGATIVE (NEGATIVE); URINE NITRITE - DIPSTICK NEGATIVE (Negative); URINE PROTEIN - DIPSTICK 30 mg/dL (NEG-TRACE); URINE SPECIFIC GRAVITY 1.015; URINE UROBILINOGEN - DIPSTICK 0.2 E.U./dL (0.2)
--- NOTE | 2021-12-25 15:07 | NUR ---
PT GIVEN APRESOLINE FOR BP IS 173/94. ZOSYN HUNG AT THIS TIME WELL. FINISHED WITH DIFLUCAN, AND VANCOMYCIN. CASE MANAGEMENT IN [place] TO SEE PT, STATES FAMILIAR WITH PT, PT MENTAL STATUS UNCHANGED. WHEN SPOKE TO, LOAD MOANS MADE. PT DOES NOT APPEAR TO RECOGNIZE PATIENT. SAFETY REVIEWED, BED ALARM ON.
--- NOTE | 2021-12-25 15:24 | NUR ---
FAMILY IN TO SEE PT AT THIS TIME, LIST OF VISITORS GIVEN AT THIS TIME, PLACED ON CHART.
--- NOTE | 2021-12-25 17:28 | NUR ---
PT IS MOANING AND RESTLESS. BP IS 175/99. MEDICATED WITH PAIN MEDICATION AT THIS TIME. FLOREZ EMPTIED. 600CC OF ALISIA URINE. BED ALARM ON FOR SAFETY. WILL CONTINUE TO MONITOR
--- NOTE | 2021-12-25 19:00 | NUR ---
PATIENT SISTER KRISHAN IN TO VISIT. PATIENT OPENS EYES SPONTANEOUSLY. NO-VERBAL, OCC MOANING. DOES NOT FOLLOW DIRECTIONS.
--- NOTE | 2021-12-25 19:15 | NUR ---
BP 179/89. MEDICATED WITH APRESOLINE 10 MG IVP ORDERED FOR ELEVATED BP. SHIFT ASSESSMENT COMPLETED. BREATH SOUNDS DIMINISHED. O2 SAT 95% RESP NON-LABORED. FLOREZ DRAINS CLEAR ALISIA URINE. IV IN RAC, SITE BENIGN, D5W INFUSING AT 75 ML/HR. VISE HAND SHOWS ST WITH PAC'S. WILL MONITOR BP CLOSELY.
--- NOTE | 2021-12-25 20:30 | NUR ---
BP 190/108. LABETELOL 10 MG IVP GIVEN ONE TIME ORDER FOR ELEVATED BP. WILL CONITNUE TO MONITOR.
--- NOTE | 2021-12-25 21:00 | NUR ---
BP RESPONDED WELL TO LABETELOL, 147,83 AT THIS TIME.
--- NOTE | 2021-12-25 21:45 | NUR ---
DILAUDID 1 MG IVP GIVEN ORDERED FOR PAIN.
--- NOTE | 2021-12-25 22:30 | NUR ---
RESTING WITH EYES CLOSED. RESP NO-LABORED. MONITOR ST WITH PAC'S.
[2021-12-26] VITALS (14 sets, daily range): BP systolic 111–182; BP diastolic 66–116
--- NOTE | 2021-12-26 | NUR ---
PATIENT OCC MOANS OUT. TURNED AND REPOSITIONED. VSS. MONITOR ST WITH PAC'S.
--- NOTE | 2021-12-26 02:30 | NUR ---
BPTRENDING BACK UP, 165/116. HYDRALAZINE GIVEN ORDERED FOR BP. PATINE THAS BEEN MOANING QUITE A BIT PAST 20-30 MINUTES. MEDICATED WITH DILAUDID ORDERED FOR PAIN. TURNED AND REPOSITIONED.
--- NOTE | 2021-12-26 04:00 | NUR ---
VSS. RESP NON-LABORED. VSS. ST WITH PAC'S ON MONITOR. IV INFUSING WITHOUT INCIDENT.
--- NOTE | 2021-12-26 04:45 | NUR ---
MEDICATED WITH ATIVAN ORDERED FOR RESTLESSNESS.
[2021-12-26 05:07] LABS: HEMATOCRIT 35.1 % (39.0-50.0); HEMOGLOBIN 11.8 g/dl (14.0-18.0); MEAN CELL VOLUME 99.2 fL CALC (80.0-100.0); MEAN CORPUSCULAR HGB 33.3 pG CALC (26.0-32.0); MEAN CORPUSCULAR HGB CONC 33.6 g/dL CAL (32.0-36.0); NEUT# 12.16 thou/uL (1.82-7.42); RED BLOOD COUNT 3.54 mill/uL (4.70-6.10); RED CELL DISTRI WIDTH 12.9 % (11.5-15.5)
[2021-12-26 05:26] LABS: ALBUMIN 2.8 g/dL (3.2-5.0); ALKALINE PHOSPHATASE 73 u/l (38-126); ANION GAP 9 (6-22 (CALC)); BILIRUBIN, TOTAL 1.2 mg/dL (0.0-1.4); BUN 20 mg/dL (8-23); BUN/CREATININE RATIO 21 (12-20 (CALC)); CARBON DIOXIDE 19 mmol/l (22-30); CHLORIDE 116 mmol/l (95-108); GFR > 60 ML/MIN (>=60 (CALC)); GFR FOR AFR.AMER. > 60 ML/MIN (>=60 (CALC)); POTASSIUM 3.5 mmol/l (3.5-5.1); SGOT/AST 260 u/l (19-48); SODIUM 140 mmol/l (137-146); TOTAL PROTEIN 6.6 g/dL (6.3-8.2)
[2021-12-26 05:42] LABS: CPK 2725 u/l (52-200)
--- NOTE | 2021-12-26 06:15 | NUR ---
VSS. IV SITE MAINTAINED IN RAC, D5W CONTIUES TO INFUSE AT 75 ML/HR.
--- NOTE | 2021-12-26 08:00 | NUR ---
PATIENT LAYING IN BED WITH EYES CLOSED, PATIENT ALERT ONLY TO NAME. PATIENT OCCASSIONALLY MOANS OUT. REFRIGERATOR CRATER DONE AT THIS TIME, LUNG LARA ARE CLEAR IN UPPER LARA AND DIMINISHED IN LOWER LARA. PATINET BOWEL SOUNDS ARE HYPOACTIVE IN ALL QUADS AT THIS TIME. PATIENT HAS A 16F FLOREZ CATH THAT IS PATENT AND DRAINING ALISIA COLOR URINE AT THIS TIME. CATH CARE PREFORMED AND NEW STAY LOCK APPLIED. PATIENT TURNED TO RIGHT SIDE AT THIS TIME. MANAGER SHIFT SHOWING S/R WITH PVC'S AT THIS TIME. SIDERAIL ARE UP X 3 CALL LIGHT IS WIHTIN REACH WILL CONTINUE TO MONITOR.
--- NOTE | 2021-12-26 09:08 | NUR ---
Attempted treatment this am, nursing requested treatment held due to just getting pt settled down. Will return later.
--- NOTE | 2021-12-26 11:15 | NUR ---
CONSENT OBTAINED FOR LUMBAR PUNCTURE PER JAZZ BUCIO WITNESSED BY AXEL TRAN, AND J CARLOS BAKER RN
--- NOTE | 2021-12-26 11:30 | NUR ---
PATIENT GIVEN 0.5MG OF DILUDID IV X 1 DOSE AND 1MG OF ATIVAN IV FOR LUMBAR PROCEEDURE. PATIENT THEN TAKEN DOWN TO XRAY FOR PROCEEDURE AT THIS TIME VIA STRETCHER.
--- NOTE | 2021-12-26 11:51 | NUR ---
Pt gone to test.
--- NOTE | 2021-12-26 12:36 | NUR ---
PATIENT RESTING IN BED AT THIS TIME. EYES CLOSED MOANING AT TIMES. LUMBAR PUNCTURE SITE DRESSING DRY AND INTACT. PATIENT VS SIGNS TAKE SEE INTERVENTIONS AT THIS TIME. SIDERAILS ARE UP CALL LIGHT WITHIN REACH WILL CONTINUE TO MONITOR.
--- NOTE | 2021-12-26 14:00 | NUR ---
BP AT THIS TIME IS 182/86 10MG OF APRESOLINE IV GIVEN AT THIS TIME. WILL CONTINUE TO MONITOR.
--- NOTE | 2021-12-26 14:24 | NUR ---
BP RE-CHECK AT THIS TIME SHOWING 154/78 HR IS 90 WILL CONTINUE TO MONITOR.
--- NOTE | 2021-12-26 15:43 | NUR ---
PATIENT GIVEN 1MG OF DILAUDID IV AT THIS TIME FOR PAIN SIDERAILS ARE UP CALL LIGHT WITHIN REACH WILL CONTINUE TO MONITOR
--- NOTE | 2021-12-26 15:53 | NUR ---
PT RECOMMENDED SCREENING, PT STATUS NOT APPROPRIATE AT THIS TIME FOR OT EVAL.
--- NOTE | 2021-12-26 16:00 | NUR ---
PATIENT RESTING IN BED AT THIS TIME WITH EYES CLOSED RESPIRATIONS EVEN AND SHALLOW AT THIS TIME. FLOREZ CATH REMAINS PATENT AND DRAINING ALISIA COLOR URINE AT THIS TIME. SIDERAILS ARE UP X3 FOR SAFETY DIRECTOR OF PUPIL PERSONNEL PROGRAM READING ST AT HR 105 AND BP AT THIS TIME IS 161/93. LUMBAR SITE REMAINS DRY AT THIS TIME PATIENT IS IN SUPINE POSITION WIHT KNEES BENT. WILL CONTINUE TO MONITOR AT THIS TIME.
--- NOTE | 2021-12-26 19:39 | NUR ---
REPORT GIVEN BY J CARLOS. PATIENT RRESTING IN BED WITH EYES CLOSED. RESP EVEN AND UNLABORED. MOANING AND CALLING OUT. FALL AND SAFTEY PRECAUTIUONS IN PLACE. FLOREZ DRAINING TO GRAVITY. IV INFUSING FLUIDS PER MD ORDERS. FULL CODE. MEDICATIED PER MD ORDERS FOR PAIN. LUNG SOUNDS CLEAR/ DIM, NO O2.
--- NOTE | 2021-12-26 22:00 | NUR ---
PATIENT RESTING WITH EYES CLOSED. RESP EVEN AND UNLABORED. NO S/S OF DISTRESS NOTED. FALL AND SAFTEY PRECAUTIONS IN PLACE.
[2021-12-27] VITALS (60 sets, daily range): BP systolic 119–227; BP diastolic 73–199
--- NOTE | 2021-12-27 00:13 | NUR ---
HYDRALAZINE GIVEN FOR SBB 178
--- NOTE | 2021-12-27 01:51 | NUR ---
patient resting with eyes closed. resp even and unlabored. no s/s of distress noted. fall and saftey precautions in place.
--- NOTE | 2021-12-27 04:18 | NUR ---
PATIENT MEDICATED WITH ATIVAN AND PAIN MEDICATION. PATIENT IS MAONING AND ROCKING SIDE TO SIDE IN BED.
--- NOTE | 2021-12-27 04:22 | NUR ---
HYDRALAZINE GIVEN FOR SBP 182
[2021-12-27 06:01] LABS: HEMATOCRIT 34.6 % (39.0-50.0); HEMOGLOBIN 11.3 g/dl (14.0-18.0); IMMATURE GRANULOCYTES 0.4 % (0.0-5.0); MEAN CELL VOLUME 99.1 fL CALC (80.0-100.0); MEAN CORPUSCULAR HGB 32.4 pG CALC (26.0-32.0); MEAN CORPUSCULAR HGB CONC 32.7 g/dL CAL (32.0-36.0); NEUT# 8.43 thou/uL (1.82-7.42); RED BLOOD COUNT 3.49 mill/uL (4.70-6.10); RED CELL DISTRI WIDTH 12.9 % (11.5-15.5)
[2021-12-27 06:30] LABS: ALBUMIN 2.7 g/dL (3.2-5.0); ALKALINE PHOSPHATASE 74 u/l (38-126); ANION GAP 10 (6-22 (CALC)); BILIRUBIN, TOTAL 1.2 mg/dL (0.0-1.4); BUN 17 mg/dL (8-23); BUN/CREATININE RATIO 19 (12-20 (CALC)); C-REACTIVE PROTEIN 6.9 mg/dL (0-0.9); CARBON DIOXIDE 19 mmol/l (22-30); CHLORIDE 114 mmol/l (95-108); CPK 1242 u/l (52-200); CREATININE 0.9 mg/dL (0.7-1.3); GFR > 60 ML/MIN (>=60 (CALC)); GFR FOR AFR.AMER. > 60 ML/MIN (>=60 (CALC)); POTASSIUM 3.1 mmol/l (3.5-5.1); SGOT/AST 177 u/l (19-48); SODIUM 140 mmol/l (137-146); TOTAL PROTEIN 6.3 g/dL (6.3-8.2)
--- NOTE | 2021-12-27 07:05 | NUR ---
REPORT FROM JUMANA TRAN. ASSUMED PT CARE.
--- NOTE | 2021-12-27 09:15 | NUR ---
PHYSICIAN AT BEDSIDE.
--- NOTE | 2021-12-27 10:40 | NUR ---
COMPLETE BED BATH WITH FLOREZ CARE AND LINEN CHANGE PROVIDED AT THIS TIME. PT TOLERATED WELL.
--- NOTE | 2021-12-27 10:51 | NUR ---
MULTIPLE ATTEMPTS TO PLACE NG TUBE, WITHOUT SUCCESS. PT DOES NOT FOLLOW COMMANDS. NOTIFIED PHYSICIAN AT THIS TIME. NO NEW ORDERS. WILL CONTINUE TO MONITOR.
--- NOTE | 2021-12-27 12:08 | NUR ---
ROM PROVIDED, PT RESISTANT. ATTEMPTED TO REPOSITION WITH PILLOWS. PT HOLLARING OUT. NO APPARENT RESPIRATORY DISTRESS NOTED. CALL LIGHT WITHIN REACH. WILL CONTINUE TO MONITOR.
--- NOTE | 2021-12-27 13:13 | NUR ---
S- pt moaning, gunting, not response to questions. 0- Contacted nursing prior to treatment BP elevated and med just given, BP 141/73 at end of treatment. Pt laying in bed in position towards L side. L eye open at times but not on command, pt did not squeeze hand on command. Pt required slow gradual PROM to B knees to get into extension, prolong positioning done to maintain, pt would pull but knees up to chest initially. PROM to BLE with heelcord and hamstring stretching done. Pt not following commands for bed mobility. He was left with LE in extension, heels off loaded and pillow between knees. Time spent with pt 25 min. A- Pt unable to participated. [facility] ECF. P- Continue to follow for ROM and positioning. Mobility per pt ability.
--- NOTE | 2021-12-27 14:18 | NUR ---
PT REPOSITIONED IN BED WITH PILLOWS. MEDICATED AT THIS TIME FOR GENERALIZED PAIN. PT CONTINUES TO MOAN OUT LOUDLY. PT SISTER AT BEDSIDE. CALL LIGHT WITHIN REACH. WILL CONTINUE TO MONITOR.
--- NOTE | 2021-12-27 15:54 | NUR ---
S- Pt moaning, does not respond to questions. 0- Contacted nursing prior to treatment. He was in position with LE rotated towards L. Pt did squeeze hand on R x 1 on command lightly. PROM x 4 extremities with pt resisting elbow flexion on L and R shoulder with flexion to approx 95 degrees and then increase resistance. LE ranged into full extension with slow gradual pressure and maintain for prolong stretch. Passive Calf stretch also done. Pt not following commands for ex. Time spent with pt 20 min A- No changes noted from am. [facility] 6 ECF P- continue per POC and progress mobility as pt is able to participate.
--- NOTE | 2021-12-27 16:26 | NUR ---
PT MOANING LOUDLY AND RESTLESS, PULLING AT ENGRAVER SIGNATURE WIRES. REPOSITIONED FOR COMFORT. MEDICATED WITH PRN ATIVAN AT THIS TIME. GAUTAM REMAINS PATENT DRAINING TO GRAIVITY. CALL LIGHT WITHIN REACH. WILL CONTINUE TO MONITOR.
--- NOTE | 2021-12-27 17:29 | NUR ---
AXEL RN AT BEDSIDE TO ADMINISTER IV APRESOLINE FOR BP 206/112.
--- NOTE | 2021-12-27 19:47 | NUR ---
PATIENT VERY RESTLESS MOANING IN BED GRIMACING WITH TACTILE TOUCH MEDICATED FOR RELIEF OF DISCOMFORT.
--- NOTE | 2021-12-27 21:31 | NUR ---
APPEAR AGITATED WITH INCREASED RESTLESS MOVEMENTS IN BED BP ELEVATED. DO NOT FOLLOW VERBAL COMMANDS RESISTS CARE. MEDICATED TO REDUCE AGITATION
--- NOTE | 2021-12-27 22:44 | NUR ---
BP REMAINS ELEVATED APRESOLINE 10 MG GIVEN SLOW IV PUSH
[2021-12-28] VITALS (31 sets, daily range): BP systolic 139–190; BP diastolic 78–111
--- NOTE | 2021-12-28 00:06 | NUR ---
DR HONG NOTIFIED OF ELEVATED BP NEW ORDER RECIEVED. MEDICATED WITH LABETALOL 10 MG SLOW IV PUSH WITH GOOD RESULTS.
--- NOTE | 2021-12-28 01:06 | NUR ---
PATIENT APPEAR DISTRESS RANDOM RESTLESS MOVEMENTS IN BED MOANS LOUDLY WITH TACTILE STIMULATION MEDICATED FOR RELIEF OF DISCOMFORT.
--- NOTE | 2021-12-28 02:00 | NUR ---
resting quietly in BED with eyes closed posture relaxed respirations even and unlabored VSS.
--- NOTE | 2021-12-28 03:00 | NUR ---
RESTING QUIETLY IN BED BP 163/85 HR 73 SPO2 96%. POSTURE RELAXED RESPIRATIONS EVEN AND UNLABORED.
--- NOTE | 2021-12-28 05:03 | NUR ---
oral care provided with bath and skin care moans loadly do not follow commands ativan 1 mg give for relief of agitation.
[2021-12-28 05:41] LABS: HEMOGLOBIN 11.7 g/dl (14.0-18.0); IMMATURE GRANULOCYTES 0.8 % (0.0-5.0); MEAN CORPUSCULAR HGB 32.5 pG CALC (26.0-32.0); MEAN CORPUSCULAR HGB CONC 32.5 g/dL CAL (32.0-36.0); NEUT# 4.9 thou/uL (1.82-7.42); RED BLOOD COUNT 3.6 mill/uL (4.70-6.10)
[2021-12-28 05:58] LABS: ALBUMIN 2.7 g/dL (3.2-5.0); ALKALINE PHOSPHATASE 64 u/l (38-126); ANION GAP 9 (6-22 (CALC)); BUN 15 mg/dL (8-23); BUN/CREATININE RATIO 20 (12-20 (CALC)); C-REACTIVE PROTEIN 6.1 mg/dL (0-0.9); CARBON DIOXIDE 20 mmol/l (22-30); CHLORIDE 116 mmol/l (95-108); CREATININE 0.7 mg/dL (0.7-1.3); GFR > 60 ML/MIN (>=60 (CALC)); GFR FOR AFR.AMER. > 60 ML/MIN (>=60 (CALC)); SGOT/AST 140 u/l (19-48); SODIUM 141 mmol/l (137-146); TOTAL PROTEIN 6.4 g/dL (6.3-8.2)
[2021-12-28 06:28] LABS: POTASSIUM 3.9 mmol/l (3.5-5.1)
--- NOTE | 2021-12-28 07:26 | NUR ---
PT RESTING QUIETLY ON STRETCHER, IV FLUIDS INFUSING, PT REPORT RECEIVED, PT REMAINS THE SAME
--- NOTE | 2021-12-28 09:52 | NUR ---
DR. HONG SPEAKING WITH [facility] DOCTOR ABOUT POSSIBLE TRANSFER
--- NOTE | 2021-12-28 11:37 | NUR ---
PHARMACY CALLED AND IS GOING TO ADJUST VANCOMYACIN AND WILL BRING IT TO US.
--- NOTE | 2021-12-28 11:38 | NUR ---
PT STILL MOANING OUT LOUD, DOES NOT FOLLOW ANY COMMANDS, WAITING FOR BED ASSIGNMENT FOR TRANSFER PER DOCTOR ORDER.
--- NOTE | 2021-12-28 13:12 | NUR ---
S- pt moaning, does not respond to questions 0- Pt seen at 9;15 this am. Nursing contacted prior to treatment. He was in bed lower body rotated towards L with legs in position. Pt seen for PROM x 4 extremities, he did assist some with UE movement but not on command. Gentle passive stretch into full knee extension requiring prolong stretch done. Pt flexes knees up to chest quickly when feet are touched for calf stretching requiring long slow stretching back into extension. Pt left in bed with leg extended heel off loaded, pillow between knees. A- [facility] 6 ECF. P- continue to encourage active movement, prevent contractures per POC.
--- NOTE | 2021-12-28 14:36 | NUR ---
S- pt able to give name this pm. and 1 or 2 words understandable. 0- Contacted nursing prior to treatment, he just was medicated with Ativan. Pt in supine legs in extension with heels off loaded. PROM/AAROM to BUEs, pt moves arms but not on command. LEs left in extension. Pt unable to perform mobility activities at this time. A- pt more alert but not following commands, [facility] 6 ECF P- Will follow per POC and progress mobility as pt status permits.
--- NOTE | 2021-12-28 16:02 | NUR ---
PT REPOSITIONED AND ALL CARE BY STAFF. IV SITE HEALTHY. VSS. PT MOANS FREQUENTLY BUT DOES NOT APPEAR TO BE IN PAIN. UNABLE TO CONVEY NEEDS. SKIN WARM AND DRY.
--- NOTE | 2021-12-28 17:24 | NUR ---
CALLED [facility] TO SET UP A TRANSFER TO ED [facility]. WAS TOLD BY GORGE THAT IT WOULD BE A COUPLE HOURS OUT BECAUSE THEY ARE ON A CALL RIGHT NOW AND WITH A LOT OF TRAFFIC. STATED IT WOULD BE LIKELY FOR THE TRANSFER TO OCCUR AROUND 8 PM TONIGHT. PT GOING TO ED [facility] ROOM NUMBER [address].
--- NOTE | 2021-12-28 17:38 | NUR ---
PT HAS A BED WILL BE GOING TO [address], [facility] NOTIFIED, WILL BE HERE AROUND 8 FOR PICKUP. FAMILY NOTIFIED
--- NOTE | 2021-12-28 17:45 | NUR ---
TRIED TO GIVE REPORT TO [facility] ON PT, BUT SINCE PT WILL NOT BE COMING TO THEM UNTIL [phone] WOULD PREFER TO GIVE ON PRODUCTION PACKAGER.
--- NOTE | 2021-12-28 18:17 | NUR ---
PT REMAINS RESTLESS AND MOANING, PULLING OFF MONITER LEADS AND PULSE OX.
--- NOTE | 2021-12-28 19:00 | NUR ---
REPORT RECEIVED Yamilex LEA RN, CARE OF PT ASSUMED AT THIS TIME.
--- NOTE | 2021-12-28 20:15 | NUR ---
ORAL CARE COMPLETED.
--- NOTE | 2021-12-28 23:00 | NUR ---
REPORT CALLED TO CHAYO TRAN AT [facility].
--- NOTE | 2021-12-28 23:14 | NUR ---
PT TRANSPORTED WITH [facility] TRANSPORT PERSONNEL. SECURED TO STRETCHER. [employer] CANDY MAKER ON.
== END 2021-12-28 23:30 | disposition short-term general hospital (02) | DRG 682 ==
LOC: ED 11:44 → ED-I 14:00 → ED 14:34 → ICU 16:51
PROVIDERS: Emergency Medicine; Hospitalist; Internal Medicine Nephrology; ADMIT Internal Medicine; ATTEND Internal Medicine
PROC: 0T9B70Z Drainage of Bladder with Drainage Device, Via Natural or Artificial Opening (ICD-10-PCS; principal; 2021-12-22)
PROC: 009U3ZX Drainage of Spinal Canal, Percutaneous Approach, Diagnostic (ICD-10-PCS; 2021-12-26)
PROC: B01BZZZ Fluoroscopy of Spinal Cord (ICD-10-PCS; 2021-12-26)
DX: N17.0 Acute kidney failure with tubular necrosis (principal); G92.8 Other toxic encephalopathy; B20 Human immunodeficiency virus [HIV] disease; R64 Cachexia; Z68.1 Body mass index [BMI] 19.9 or less, adult; E46 Unspecified protein-calorie malnutrition; M62.82 Rhabdomyolysis; E87.0 Hyperosmolality and hypernatremia; E87.2 Acidosis; E86.0 Dehydration; R09.02 Hypoxemia; E87.5 Hyperkalemia; E86.9 Volume depletion, unspecified; I10 Essential (primary) hypertension; G62.9 Polyneuropathy, unspecified; E83.39 Other disorders of phosphorus metabolism; E87.6 Hypokalemia; F15.10 Other stimulant abuse, uncomplicated; F14.10 Cocaine abuse, uncomplicated; F12.10 Cannabis abuse, uncomplicated; R74.01 Elevation of levels of liver transaminase levels; E87.8 Other disorders of electrolyte and fluid balance, not elsewhere classified; R74.8 Abnormal levels of other serum enzymes; D64.9 Anemia, unspecified; Z79.891 Long term (current) use of opiate analgesic; Z20.822 Contact with and (suspected) exposure to COVID-19
CPT/HCPCS: A9579; J1650; J2060; J3370

== ENCOUNTER 2022-01-01 19:45 | Observation (INO) | payer MEDICARE, MEDICAID ==
[~2022-01-01] VITALS: Ht 185.4 cm; Wt 63.0 kg
[~2022-01-01 19:45] MED LIST changes: +KURIC2 % EX; +XALATAN0.005 % OU
[2022-01-01 23:14] VITALS: BP 151/82
[2022-01-02 04:36] VITALS: BP 103/63
[2022-01-02 06:48] LABS: HEMATOCRIT 33.4 % (39.0-50.0); HEMOGLOBIN 10.8 g/dl (14.0-18.0); IMMATURE GRANULOCYTES 0.6 % (0.0-5.0); MEAN CELL VOLUME 99.7 fL CALC (80.0-100.0); MEAN CORPUSCULAR HGB 32.2 pG CALC (26.0-32.0); MEAN CORPUSCULAR HGB CONC 32.3 g/dL CAL (32.0-36.0); NEUT# 4.06 thou/uL (1.82-7.42); RED BLOOD COUNT 3.35 mill/uL (4.70-6.10); RED CELL DISTRI WIDTH 12.8 % (11.5-15.5)
[2022-01-02 07:12] LABS: BUN 15 mg/dL (8-23); BUN/CREATININE RATIO 18 (12-20 (CALC)); CARBON DIOXIDE 19 mmol/l (22-30); CHLORIDE 107 mmol/l (95-108); CREATININE 0.8 mg/dL (0.7-1.3); GFR > 60 ML/MIN (>=60 (CALC)); GFR FOR AFR.AMER. > 60 ML/MIN (>=60 (CALC)); POTASSIUM 4.2 mmol/l (3.5-5.1)
[2022-01-02 07:35] LABS: ANION GAP 11 (6-22 (CALC)); SODIUM 133 mmol/l (137-146)
[2022-01-02 08:18] VITALS: BP 163/69
[2022-01-02 14:45] VITALS: BP 128/72
[2022-01-02 15:03] VITALS: BP 128/72
[2022-01-02 19:10] VITALS: BP 129/77
[2022-01-03 03:28] VITALS: BP 155/82
[2022-01-03 06:06] LABS: HEMATOCRIT 35.3 % (39.0-50.0); HEMOGLOBIN 11.3 g/dl (14.0-18.0); IMMATURE GRANULOCYTES 0.5 % (0.0-5.0); MEAN CELL VOLUME 100.3 fL CALC (80.0-100.0); MEAN CORPUSCULAR HGB 32.1 pG CALC (26.0-32.0); NEUT# 3.74 thou/uL (1.82-7.42); RED BLOOD COUNT 3.52 mill/uL (4.70-6.10); RED CELL DISTRI WIDTH 12.9 % (11.5-15.5)
[2022-01-03 06:32] LABS: ALBUMIN 2.8 g/dL (3.2-5.0); ALKALINE PHOSPHATASE 93 u/l (38-126); BUN 15 mg/dL (8-23); BUN/CREATININE RATIO 18 (12-20 (CALC)); C-REACTIVE PROTEIN 2.7 mg/dL (0-0.9); CARBON DIOXIDE 22 mmol/l (22-30); CHLORIDE 107 mmol/l (95-108); CREATININE 0.8 mg/dL (0.7-1.3); GFR > 60 ML/MIN (>=60 (CALC)); GFR FOR AFR.AMER. > 60 ML/MIN (>=60 (CALC)); SGOT/AST 110 u/l (19-48); SODIUM 136 mmol/l (137-146); TOTAL PROTEIN 6.7 g/dL (6.3-8.2)
[2022-01-03 06:42] LABS: ANION GAP 12 (6-22 (CALC)); BILIRUBIN, TOTAL 0.5 mg/dL (0.0-1.4); MAGNESIUM 1.3 mg/dL (1.6-2.3); POTASSIUM 5.2 mmol/l (3.5-5.1)
[2022-01-03 07:49] VITALS: BP 144/70
[2022-01-03 15:53] VITALS: BP 136/67
[2022-01-03 20:34] VITALS: BP 155/60
[2022-01-04 04:00] VITALS: BP 125/72
[2022-01-04 08:04] VITALS: BP 122/84
[2022-01-04 08:07] VITALS: BP 122/84
== END 2022-01-04 13:37 ==
LOC: MS2 19:45
PROVIDERS: Nurse Practitioner; ADMIT Internal Medicine; ATTEND Internal Medicine
DX: G93.41 Metabolic encephalopathy (principal); N17.9 Acute kidney failure, unspecified; B20 Human immunodeficiency virus [HIV] disease; M62.82 Rhabdomyolysis; E86.0 Dehydration; I10 Essential (primary) hypertension; R63.6 Underweight; R74.01 Elevation of levels of liver transaminase levels; Z68.1 Body mass index [BMI] 19.9 or less, adult; G62.9 Polyneuropathy, unspecified; R64 Cachexia; E46 Unspecified protein-calorie malnutrition; Z79.891 Long term (current) use of opiate analgesic; Z20.822 Contact with and (suspected) exposure to COVID-19
CPT/HCPCS: G0378; J3475